=== PATIENT | female | born 1990 | race Caucasian/White ===

== ENCOUNTER 2020-06-22 20:27 | Emergency (ER) | payer SELFPAY ==
[2020-06-22 20:29] VITALS: BP 123/75; PULSE 80; RESP 14; TEMP 36.7; O2SAT 94
--- NOTE | 2020-06-22 21:05 | ED.DENTAL ---
HPI - Dental/Oral General Chief complaint: Dental/Oral <Pablito Perez PA-C - Last Filed: 06/22/20 21:20> Stated complaint: TOOTH PAIN <Pablito Perez PA-C - Last Filed: 06/22/20 21:20> Time Seen by Provider: 06/22/20 20:43 <Pablito Perez PA-C - Last Filed: 06/22/20 21:20> Source: patient <Pablito Perez PA-C - Last Filed: 06/22/20 21:20> Mode of arrival: ambulatory <LUKE Jordan Last Filed: 06/22/20 21:20> Limitations: no limitations <LUKE Jordan Last Filed: 06/22/20 21:20> History of Present Illness HPI Narrative: Patient presents with chief complaint of left upper dental pain in the area of 3 teeth that have been broken for multiple years but just became painful today at approximately 4 PM. Patient states that the pain is worse and if she cannot eat or drink to due to the discomfort. Patient denies fever, chills, nausea, vomiting, diarrhea. Patient denies any allergies to any antibiotics. Patient denies chance of due to being on oral control and not being sexually active for many months. Patient denies any other symptoms or concerns. <Pablito Perez PA-C - Last Filed: 06/22/20 21:20> Related Data Allergies/adverse reactions: Allergies Allergy/AdvReac Type Severity Reaction Status Date / Time No Known Allergies Allergy Verified 06/22/20 20:44 <Pablito Perez PA-C - Last Filed: 06/22/20 21:20> Review of Systems Review of Systems: Narrative: CONSTITUTIONAL: Denies fever, chills, or sweats. EYES: Denies visual changes, redness, or discharge. ENT: Reports dental pain denies rhinorrhea, congestion, sore throat, or otalgia. CARDIOVASCULAR: Denies chest pain, palpitations, or edema. RESPIRATORY: Denies cough or dyspnea. GASTROINTESTINAL: Denies abdominal pain, nausea, vomiting, or diarrhea. GENITOURINARY: Denies dysuria or hematuria. SKIN: Denies rash or itching. MUSCULOSKELETAL: Denies back pain, joint pain, or myalgia. NEUROLOGIC: Denies headache, numbness, dizziness, or weakness. PSYCHIATRIC: Denies anxiety or depression. <Pablito Perez PA-C - Last Filed: 06/22/20 21:20> [facility] Social History Social History: Social History (Updated 10/17/19 @ 13:45 by Logan Ortiz PA-C) Smoking status: Current every day smoker Gender identity (if verbalized by the patient): Female <Pablito Perez PA-C - Last Filed: 06/22/20 21:20> Exam Narrative: Exam Narrative: GENERAL: Well-appearing, well-nourished, and in no acute distress. HEAD: Normocephalic, atraumatic. EYES: PERRLA and EOMI. ENT: Nares clear, no rhinorrhea or epistaxis. Mucous membranes moist. Oropharynx without tonsillar hypertrophy exudate or other lesions. Bilateral TMs pearly de guzman nonbulging. Decay and fracture to left upper 11-13. No abscess or drainage noted. NECK: Supple. No adenopathy or masses. CHEST: Clear to auscultation. No respiratory distress. No wheezes rales or rhonchi HEART: Regular rate and rhythm. EXTREMITIES: Normal range of motion. No edema. SKIN: Warm, dry, no rash. NEURO: No focal deficits. Alert and oriented x3. <Pablito Perez PA-C - Last Filed: 06/22/20 21:20> Course Vital Signs Vital signs: Vital Signs Temperature 36.7 C 06/22/20 20:29 Pulse Rate 80 06/22/20 20:29 Respiratory Rate 14 06/22/20 20:29 Blood Pressure 123/75 06/22/20 20:29 Pulse Oximetry 94 06/22/20 20:29 Temperature 36.7 C 06/22/20 20:29 Pulse Rate 79 06/22/20 21:30 Respiratory Rate 18 06/22/20 21:30 Blood Pressure 123/75 06/22/20 20:29 Pulse Oximetry 100 06/22/20 21:30 <Pablito Perez PA-C - Last Filed: 06/22/20 21:20> Vital Signs Temperature 36.7 C 08/25/20 20:29 Pulse Rate 80 06/22/20 20:29 Respiratory Rate 14 06/22/20 20:29 Blood Pressure 123/75 06/22/20 20:29 Pulse Oximetry 94 06/22/20 20:29 Temperature 36.7 C 06/22/20 20:29 Pulse Rate 79 06/22/20 21:30 Respiratory Rate
[2020-06-22] MEDS: KETOROLAC (*BKC) 60 MG/2 ML VIAL 30 MG IM (21:25)
[2020-06-22 21:30] VITALS: PULSE 79; RESP 18; O2SAT 100
== END 2020-06-22 21:32 | disposition home or self-care (01) ==
PROVIDERS: Emergency Provider Emergency Medicine
DX: K02.9 Dental caries, unspecified (principal); F17.210 Nicotine dependence, cigarettes, uncomplicated
CPT/HCPCS: 96372; 99283; J1885

== ENCOUNTER 2020-12-07 22:15 | Emergency (ER) | payer SELFPAY ==
--- NOTE | ~2020-12-07 | XR_ITS ---
EXAMINATION: XR soft tissue neck DATE: 12/07/2020 22:38 INDICATION: Throat and chest pain after eating chips. Possible foreign body. TECHNIQUE: AP and lateral views of the soft tissues of the neck were obtained. COMPARISON: None. FINDINGS: No radiopaque foreign bodies. Cervical soft tissues are unremarkable with normal epiglottis. The visu alized airway and bilateral upper lung zones are clear. Bones are unremarkable. IMPRESSION: 1. Negative soft tissue neck radiographs. No evident radiopaque foreign bodies. Reviewed, dictated and finalized at location A. ICAL QUALITY ASSURANCE SPECIALIST
--- NOTE | ~2020-12-07 | XR_ITS ---
EXAMINATION: XR chest 2V DATE: 12/07/2020 23:34 INDICATION: Midsternal chest pain. Shortness of breath. TECHNIQUE: PA and lateral views of the chest were obtained. COMPARISON: None FINDINGS: The lungs are clear with no focal airspace opacities, pulmonary edema, pleural effusion or pneumothor ax. The cardiomediastinal silhouette is normal. Visualized bones and soft tissues are unremarkable. IMPRESSION: 1. Normal chest radiograph. Reviewed, dictated and finalized at location A. ET RESEARCH MANAGER IMPRESSION: 1. Normal chest radiograph.
[2020-12-07 22:17] VITALS: BP 133/90; PULSE 94; RESP 22; TEMP 36.4; O2SAT 100
--- NOTE | 2020-12-07 22:31 | ED.GENADULT ---
HPI - General Adult General Chief complaint: Unspecified Stated complaint: feels like something stuck in throat Time Seen by Provider: 12/07/20 22:25 Source: patient Mode of arrival: ambulatory Limitations: no limitations History of Present Illness HPI narrative: Patient is a 30-year-old female complaining of something feels like stuck in my throat after eating chips tonight, but states that when she tried to swallow she had no difficulty, she was able to drink a whole can of Coke I thought I had gas, indigestion . Patient denies any facial, lip, tongue or throat swelling. Patient denies any chest pain or shortness of breath. Related Data Allergies Allergy/AdvReac Type Severity Reaction Status Date / Time No Known Allergies Allergy Verified 12/07/20 22:20 Review of Systems Review of Systems: All systems reviewed & are unremarkable except as noted in HPI and below Constitutional: Constitutional: Denies body ache(s), Denies chills, Denies excessive sweating, Denies fatigue, Denies fever(s), Denies headache(s), Denies lethargy, Denies malaise, Denies weakness and Denies weight loss Eyes: Eyes: Denies blurry vision, Denies change in vision and Denies loss of vision ENT: Denies dizziness, Denies ear discharge, Denies headache(s), Denies lip swelling, Denies epistaxis, Denies nasal congestion, Denies neck pain, Denies throat swelling and Denies tongue swelling Cardiovascular: Cardiovascular: Denies chest pain, Denies chest pain at rest, Denies chest pain with activity, Denies diaphoresis, Denies rapid heart rate, Denies edema, Denies irregular heart rhythm, Denies lightheadedness, Denies palpitations, Denies dyspnea and Denies dyspnea on exertion Respiratory: Respiratory: Denies chest congestion, Denies cough, Denies hemoptysis, Denies dyspnea and Denies dyspnea on exertion Gastrointestinal: Gastrointestinal: Denies abdominal pain, Denies melena, Denies hematochezia, Denies diarrhea, Denies nausea, Denies vomiting and Denies hematemesis Musculoskeletal: Musculoskeletal: Denies abnormal gait, Denies deformity, Denies joint swelling, Denies limited range of motion, Denies neck pain and Denies numbness Neurologic: Denies Abnormal speech present, Denies abnormal gait, Denies confusion, Denies dizziness, Denies headache(s), Denies focal weakness, Denies loss of vision, Denies numbness, Denies Other visual disturbances, Denies Sensory deficit (Neuro) and Denies weakness Psychiatric: Psychiatric: Denies confusion, Denies depression, Denies auditory hallucinations, Denies homicidal ideation and Denies suicidal ideation Endocrine: Endocrine: Denies cold intolerance, Denies excessive sweating, Denies fatigue, Denies heat intolerance and Denies palpitations Hematologic/Lymphatic: Hematologic/Lymphatic: Denies easy bleeding and Denies easy bruising Allergic/Immunologic: Allergic/Immunologic: Denies lip swelling, Denies throat swelling and Denies tongue swelling PMFSH Social History Social History Smoking status: Current every day smoker Gender identity (if verbalized by the patient): Female Exam Const: General: cooperative, healthy appearing, comfortable, no acute distress, well developed, alert and awake; No confusion Orientation/consciousness: oriented to person, oriented to place, oriented to time, patient oriented x3 and No confusion Limitations: no limitations HENMT: Head: normal to inspection, normocephalic and atraumatic Ears: hearing grossly normal bilaterally, TM normal on the right and TM normal on the left General nose exam: Normal external nose present, Normal nares present and No nasal discharge present Face and sinus: normal facial exam Mouth: Yes Normal oral and palatal mucosa present, Yes lip normal, Yes tongue normal, Yes oropharynx normal and Yes other (Clear oropharyngeal area, negative for swelling) Throat: posterior oropharynx normal, tonsils normal and uvula m
--- NOTE | 2020-12-07 23:18 | ECG_ITS ---
Measurements Intervals [place] Rate: 74 P: 71 HI: 186 QRS: 66 QRSD: 102 T: 54 QT: 364 QTc: 405 Interpretive Statements SINUS RHYTHM BASELINE ARTIFACT- I, III, AVR, AVL, AVF NORMAL ECG Electronically Signed On 12-08-2020 7:05:34 OIL WELL CABLE TOOL OPERATOR by Jacob Helms D.O.
[2020-12-07] MEDS: FAMOTIDINE 20 MG TABLET PO (23:21)
[2020-12-07] MEDS: BELLADONNA ALK/PHENOB ELIX 10 ML, MAG HYDROX/ALUMINUM HYD/SIMETH 30 ML, LIDOCAINE HCL 2... PO (23:21)
--- NOTE | 2020-12-07 23:33 | PC.NURSE ---
Patient now states she is having chest pain. EDP Rosemary notified. EKG done and patient placed on audio visual coordinator.
[2020-12-08 00:19] VITALS: BP 140/75; PULSE 79; RESP 14; O2SAT 100
== END 2020-12-08 00:41 | disposition home or self-care (01) ==
PROVIDERS: Emergency Provider Emergency Medicine
DX: K29.00 Acute gastritis without bleeding (principal); F17.200 Nicotine dependence, unspecified, uncomplicated
CPT/HCPCS: 70360; 71046; 93005; 99283; A9270

== ENCOUNTER 2021-04-08 17:06 | Emergency (ER) | payer SELFPAY ==
[2021-04-08 17:08] VITALS: BP 127/62; PULSE 74; RESP 18; TEMP 36.4; O2SAT 98
--- NOTE | 2021-04-08 17:12 | ECG_ITS ---
Measurements Intervals [place] Rate: 64 P: 66 [place]: 210 QRS: 45 QRSD: 93 T: 45 QT: 374 QTc: 388 Interpretive Statements SINUS RHYTHM WITH MARKED SINUS ARRHYTHMIA WITH INTERMITTENT FIRST DEGREE AV BLOCK INCOMPLETE RIGHT BUNDLE BRANCH BLOCK LOW QRS VOLTAGE IN PRECORDIAL LEADS ABNORMAL ECG Electronically Signed On 04-08-2021 20:32:59 CDT by Jacob Helms D.O.
[2021-04-08 17:26] LABS: Basophils Absolute Auto 0.1 K/mm3 (0.0-0.1); Basophils Percent Auto 0.7 % (0.2-1.2); Eosinophils Absolute Auto 0.2 K/mm3 (0-0.3); Eosinophils Percent Auto 2.9 % (0-4.4); Hematocrit 41.3 % (37.0-47.0); Hemoglobin 13.7 g/dL (12.0-15.0); Immature Granulocyte Absolute 0.02 K/mm3 (0.00-0.031); Immature Granulocyte Percent A 0.2 % (0-0.5); Lymphocytes Absolute Auto 2.15 K/mm3 (0.9-3.2); Lymphocytes Percent Auto 26.3 % (18.3-44.2); Mean Corpuscular HGB Conc 33.2 g/dl (32-36); Mean Corpuscular Hemoglobin 30.2 pg (26-34); Mean Corpuscular Volume 91.2 fl (80-100); Mean Platelet Volume 9.2 fl (7.4-10.4); Monocytes Absolute Auto 0.4 K/mm3 (0.1-0.6); Monocytes Percent Auto 5.3 % (2.6-8.5); Neutrophils Absolute Auto 5.3 K/mm3 (1.3-6.7); Neutrophils Percent Auto 64.6 % (45.5-73.1); Platelet Count Result 227 k/mm3 (150-375); Red Blood Count 4.53 M/mm3 (4.2-5.4); Red Cell Distribution Width 12.2 % (11.5-14.5); White Blood Count 8.2 K/mm3 (4.5-10.0)
[2021-04-08 17:38] LABS: Alanine Aminotransferase 9 U/L (4-35); Albumin Level 4.2 g/dL (3.5-5.1); Alkaline Phosphatase 62 U/L (38-126); Anion Gap 7 mmol/L (8-16); Aspartate Amino Transferase 18 U/L (14-36); Bilirubin,Total 0.6 mg/dL (0.2-1.3); Blood Urea Nitrogen 9 mg/dL (7-17); Calcium 9.2 mg/dL (8.4-10.2); Carbon Dioxide 26 mmol/L (22-30); Chloride 106 mmol/L (98-107); Estimated CRCL calculation 104 ml/min; Estimated Glomerular Filt Rate > 60; Glucose 91 mg/dL (65-105); Potassium 4.5 mmol/L (3.4-5.0); Sodium 139 mmol/L (137-145)
[2021-04-08 17:51] LABS: Add Urine Microscopic? NO; Appearance Urine Clear (Clear); Bilirubin Urine Negative (Negative); Blood Urine Negative (Negative); Color Urine Yellow (Yellow); Glucose Urine UA Negative (Negative); Ketones Urine Negative (Negative); Leukocyte Esterase Ur Negative LEU/UL (Negative); Nitrate Urine Negative (Negative); Protein Urine Negative (Negative); Urobilinogen Urine Negative mg/dL (<2.0)
[2021-04-08 17:53] LABS: Specific Grav Ur 1.004 (1.001-1.035)
[2021-04-08 19:28] VITALS: BP 126/84; PULSE 63; RESP 14; TEMP 36.8; O2SAT 100
[2021-04-08] MEDS: SODIUM CHLORIDE 0.9% IV 1,000 ML 999 ML IV CONT (19:43)
--- NOTE | 2021-04-08 20:14 | ED.WEAKNESS ---
HPI - Weakness General Chief complaint: Weakness Stated complaint: at work, weak Time Seen by Provider: 04/08/21 19:31 History of Present Illness HPI Narrative: Patient 30-year-old female presents to emergency department with chief complaint of generalized weakness. 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 The patient states that she does have a propensity to getting dehydrated quite frequently patient denies syncope. Patient states that she would like something to drink denies focal neurological deficit Related Data Allergies Allergy/AdvReac Type Severity Reaction Status Date / Time No Known Allergies Allergy Verified 04/08/21 19:36 Review of Systems Review of Systems: Narrative: A 10 system review of systems was completed on the patient and is negative except for what is stated in the HPI. Nursing and ancillary documentation was reviewed. [facility] [place] Social History Social History Smoking status: Current every day smoker Gender identity (if verbalized by the patient): Female Exam Narrative: Exam Narrative: GENERAL: Well-appearing, well-nourished, and in no acute distress. HEAD: Normocephalic, atraumatic. EYES: PERRLA and EOMI. ENT: Nares clear, no rhinorrhea or epistaxis. Mucous membranes moist. NECK: Supple. CHEST: Clear to auscultation. No respiratory distress. HEART: Regular rate and rhythm. No murmur heard. Normal peripheral pulses. ABDOMEN: Soft, nontender, nondistended, normal active bowel sounds. EXTREMITIES: Normal range of motion. No edema. SKIN: Warm, dry, no rash. NEURO: No focal deficits. Alert and oriented x3. PSYCH: Normal mood and affect. Course Vital Signs Vital signs: Vital Signs Temperature 36.4 C 04/08/21 17:08 Pulse Rate 74 04/08/21 17:08 Respiratory Rate 18 04/08/21 17:08 Blood Pressure 127/62 04/08/21 17:08 Pulse Oximetry 98 04/08/21 17:08 Temperature 36.8 C 04/08/21 19:28 Pulse Rate 63 04/08/21 19:28 Respiratory Rate 14 04/08/21 19:28 Blood Pressure 126/84 04/08/21 19:28 Pulse Oximetry 100 04/08/21 19:28 MDM - Weakness Lab Data Result diagrams: 04/08/21 17:16 04/08/21 17:16 Labs: Lab Results 04/08/21 04/08/21 04/08/21 Range/Units 17:16 17:16 17:35 WBC 8.2 (4.5-10.0) K/mm3 RBC 4.53 (4.2-5.4) M/mm3 Hgb 13.7 (12.0-15.0) g/dL Hct 41.3 (37.0-47.0) % MCV 91.2 (80-100) fl MCH 30.2 (26-34) pg MCHC 33.2 (32-36) g/dl RDW 12.2 (11.5-14.5) % Plt Count 227 (150-375) k/mm3 MPV 9.2 (7.4-10.4) fl Immature Gran % (Auto) 0.2 (0-0.5) % Neut % (Auto) 64.6 (45.5-73.1) % Lymph % (Auto) 26.3 (18.3-44.2) % [place] % (Auto) 5.3 (2.6-8.5) % Eos % (Auto) 2.9 (0-4.4) % Baso % (Auto) 0.7 (0.2-1.2) % Lymph # (Auto) 2.15 (0.9-3.2) K/mm3 [place] # (Auto) 0.4 (0.1-0.6) K/mm3 Eos # (Auto) 0.2 (0-0.3) K/mm3 Baso # (Auto) 0.1 (0.0-0.1) K/mm3 Abs Immat Gran (auto) 0.02 (0.00-0.031) K/mm3 Absolute Neuts (auto) 5.3 (1.3-6.7) K/mm3 Absolute Nucleated RBC 0.0 (0.0-0.012) K/mm3 Nucleated RBC % 0.0 (0.0-0.2) % Sodium 139 (137-145) mmol/L Potassium 4.5 (3.4-5.0) mmol/L Chloride 106 (98-107) mmol/L Carbon Dioxide 26 (22-30) mmol/L Anion Gap 7 L (8-16) mmol/L BUN 9 (7-17) mg/dL Creatinine 0.80 (0.7-1.0) mg/dL Estim Creat Clear Calc 104 ml/min Estimated GFR > 60 (59 - ) Glucose 91 (65-105) mg/dL Calcium 9.2 (8.4-10.2) mg/dL Total Bilirubin 0.6 (0.2-1.3) mg/dL AST 18 (14-36) U/L ALT 9 (4-35) U/L Alkaline Phosphatase 62 (38-126) U/L Total Protein 7.0 (6.3-8.2) g/dL Albumin 4.2 (3.5-5.1) g/dL Urine Color Yellow (Yellow) Ur
[2021-04-08 20:50] VITALS: BP 113/69; PULSE 48; RESP 18; O2SAT 100
[2021-04-08 21:04] VITALS: BP 115/78; PULSE 69; RESP 13; O2SAT 100
== END 2021-04-08 21:16 | disposition home or self-care (01) ==
PROVIDERS: Emergency Medicine; Emergency Provider Emergency Medicine
DX: R53.1 Weakness (principal); R00.1 Bradycardia, unspecified; F17.200 Nicotine dependence, unspecified, uncomplicated; I45.10 Unspecified right bundle-branch block; I44.0 Atrioventricular block, first degree
CPT/HCPCS: 36415; 80053; 81003; 85025; 93005; 96360; 99283; J7030

== ENCOUNTER 2021-07-19 18:18 | Emergency (ER) | payer OTHER, SELFPAY ==
--- NOTE | ~2021-07-19 | XR_ITS ---
EXAMINATION: XR thoracic spine 2V, XR lumbar spine 2-3V DATE: 07/19/2021 21:55 INDICATION: Mid thoracic to lower back pain post injury TECHNIQUE: 1. One AP, lateral and lateral swimmer's views of the thoracic spine were obtained. 2. AP, lateral and coned-down lateral lumbosacral views of the lumbar spine were obtained. COMPARISON: None. FINDINGS: Normal alignment of the thoracic and lumbar spine. Vertebral body heights are normal. A few small Gloria morl's nodes along the seventh of the inferior endplates in the mid to lower thoracic spine. Moderate disc height loss at L5-S1 and mild disc height loss at L3-L4 and multiple additional levels in the m id to lower thoracic spine. Mild osteoarthritis at a few of the lumbar facet joints. Sacrum and bilat eral sacral iliac joints are normal. Visualized portion of the lungs are clear. No pleural effusion o r pneumothorax. Cardiomediastinal silhouette is normal. 2 mm calcification lateral to the right trans verse process of L2 possibly a renal stone. IMPRESSION: 1. Mild thoracolumbar spondylosis. No evident acute osseous abnormality. 2. Possible 2 mm right renal stone. Reviewed, dictated and finalized at location A. IMPRESSION: 1. Mild thoracolumbar spondylosis. No evident acute osseous abnormality. 2. Possible 2 mm right renal stone.
[2021-07-19 18:37] VITALS: BP 133/65; PULSE 101; RESP 16; TEMP 36.9; O2SAT 98
[2021-07-19 20:52] VITALS: BP 155/99; PULSE 78; RESP 15; O2SAT 98
--- NOTE | 2021-07-19 21:35 | ED.FALL ---
HPI - Fall General Chief Complaint: Fall Stated Complaint: Tripped and Fall/back pain Laceration to rt knee Time Seen by Provider: 07/19/21 21:10 Source: patient Mode of arrival: ambulatory Limitations: no limitations History of Present Illness HPI Narrative: Patient is a 31-year-old female complaining of mid and lower back pain, 6 out of 10, dull, worse with movement and palpation after falling at work. Patient states that she had a palate at work and fell. Patient denies any head, neck, chest, pelvis, abdomen or any other extremity pain/injury. Denies any loss of consciousness. Related Data Allergies Allergy/AdvReac Type Severity Reaction Status Date / Time paper tape Allergy Hives Uncoded 07/19/21 21:21 Review of Systems Review of Systems: All systems reviewed & are unremarkable except as noted in HPI and below PMFSH Social History Social History Smoking status: Current every day smoker Gender identity (if verbalized by the patient): Female Comments Past medical history: None Family history: Noncontributory Social history: Positive for smoker, no EtOH or drug use Exam Const: General: cooperative, healthy appearing, comfortable, no acute distress, well developed, alert and awake; No confusion Orientation/consciousness: oriented to person, oriented to place, oriented to time, patient oriented x3 and No confusion Limitations: no limitations HENMT: Head: normal to inspection, normocephalic and atraumatic Ears: hearing grossly normal bilaterally, TM normal on the right and TM normal on the left General nose exam: Normal external nose present, Normal nares present and No nasal discharge present Face and sinus: normal facial exam Mouth: Yes Normal oral and palatal mucosa present, Yes lip normal, Yes tongue normal and Yes oropharynx normal Throat: posterior oropharynx normal, tonsils normal and uvula midline Eyes: General: appearance normal, both eyes and all related structures Pupils: Equal, round and reactive pupils present EOM: EOMs intact bilaterally Neck: Neck: normal visual inspection, full ROM, no lymphadenopathy and no meningeal signs Chest: Chest palpation & inspection: normal inspection of the chest Resp: Effort & Inspection: normal respiratory effort, able to speak in complete sentences, no respiratory distress and not tachypneic Auscultation: clear to auscultation bilaterally, no crackles, no rales, no rhonchi and no wheezes Cardio: Rate: regular rate Rhythm: regular rhythm GI: Inspection: normal to inspection GI Palp: No abdominal tenderness, Yes Soft to palpation, No Tenderness to palpation present (GI), No Guarding due to palpation present (GI), No Rigid due to palpation and No Rebound tenderness present Auscultation: normal bowel sounds : General: Yes no CVA tenderness Back/Spine/Pelvis: Other: Negative for vertebral tenderness. Tenderness on palpation bilateral thoracic paraspinal area. Tenderness on palpation bilateral lumbar paraspinal area right greater than the left. Skin: General skin exam: normal color, no rashes or lesions noted, elasticity normal and turgor normal Neuro: General: oriented to person, oriented to place, oriented to time, patient oriented x3, tone normal, moves all extremities, Normal light touch and pain sensation, no meningeal signs, no focal motor deficits, CN's II-XI intact bilaterally and No confusion Cranial nerves: Yes Equal, round and reactive pupils present Speech: No Abnormal speech present Sensory Exam: No Sensory deficit (Neuro) Extrem: General: normal to inspection, full ROM and capillary refill normal Psych: Appearance: grossly normal and well kempt Mental Status: mental status grossly normal Speech and movement: Normal speech and movement present Affect: normal affect Attitude: cooperative Thought process: Normal thought process present Thought content: Yes Normal thought content present
[2021-07-19 23:00] VITALS: BP 130/74; PULSE 74; RESP 19; O2SAT 97
== END 2021-07-19 23:00 | disposition home or self-care (01) ==
PROVIDERS: Emergency Provider Emergency Medicine; PCP Nurse Practitioner Family
DX: S29.019A Strain of muscle and tendon of unspecified wall of thorax, initial encounter (principal); S39.012A Strain of muscle, fascia and tendon of lower back, initial encounter; F17.210 Nicotine dependence, cigarettes, uncomplicated; W19.XXXA Unspecified fall, initial encounter
CPT/HCPCS: 72070; 72100; 99283

== ENCOUNTER 2021-07-21 14:44 | Emergency (ER) | payer OTHER, SELFPAY ==
--- NOTE | ~2021-07-21 | XR_ITS ---
XR shoulder RT min 2V 07/21/2021 15:39 INDICATION: Right shoulder pain PROCEDURE: 4 views right shoulder COMPARISON: 10/17/2019 FINDINGS: Fracture, dislocation or subluxation is not identified. The soft tissues appear within norm al limits. No foreign bodies are identified. IMPRESSION: 1: NO ACUTE BONE OR JOINT ABNORMALITY IDENTIFIED. Reviewed, dictated and finalized at location A.
--- NOTE | ~2021-07-21 | CT_ITS ---
EXAMINATION: CT cervical spine wo con DATE: 07/21/2021 15:34 INDICATION: Neck pain after fall TECHNIQUE: Computed tomography (CT) of the cervical spine was performed without intravenous contrast. The dose-length product was 187 mGy-cm. Automated exposure control and iterative reconstruction tech [email or web address] were employed. COMPARISON: None FINDINGS: There is straightening of cervical lordosis. Vertebral body heights are maintained. No sign ificant disc narrowing. There is anatomic alignment. No evidence for perched facet. Odontoid process within normal limits. Lung apices are normal. No significant paraspinal soft tissue abnormality. Cran iovertebral junction is normal. Thyroid gland within normal limits. IMPRESSION: 1. No acute abnormality of the cervical spine. Reviewed, dictated and finalized at location A.
[2021-07-21 14:50] VITALS: BP 129/82; PULSE 110; RESP 20; TEMP 37.1; O2SAT 97
--- NOTE | 2021-07-21 16:24 | ED.FALL ---
HPI - Fall General Chief Complaint: Fall Stated Complaint: neck shoulder pain Time Seen by Provider: 07/21/21 15:09 Source: patient Mode of arrival: ambulatory Limitations: no limitations History of Present Illness HPI Narrative: Patient presents with chief complaint of pain to her neck and right shoulder that have presented after falling on Sunday while at work. Patient states that her lower body landed on the palate that she tripped on in her upper body landed on the cement floor. Patient presented to the emergency department at that time and had x-rays of her thoracic and lumbar spine however since she has noticed increased pain to her neck and right shoulder. Patient reports tearing the rotator cuff of her right shoulder in the past. Patient denies weakness in the extremity. She denies radicular symptoms. She reports the pain is right to the center of her neck posteriorly and is intense. Patient denies chance of due to being on oral control pills and a negative test on Sunday. Related Data Home Medications Medication Instructions Recorded Confirmed ergocalciferol (vitamin D2) 07/21/21 Allergies Allergy/AdvReac Type Severity Reaction Status Date / Time paper tape Allergy Hives Uncoded 07/19/21 21:21 Review of Systems Review of Systems: CONSTITUTIONAL: Denies fever, chills, or sweats. EYES: Denies visual changes, redness, or discharge. ENT: Denies rhinorrhea, congestion, sore throat, or otalgia. CARDIOVASCULAR: Denies chest pain, palpitations, or edema. RESPIRATORY: Denies cough or dyspnea. GASTROINTESTINAL: Denies abdominal pain, nausea, vomiting, or diarrhea. GENITOURINARY: Denies dysuria or hematuria. SKIN: Denies rash or itching. MUSCULOSKELETAL: Reports neck and right shoulder denies back pain or myalgia. NEUROLOGIC: Denies headache, numbness, dizziness, or weakness. PSYCHIATRIC: Denies anxiety or depression. PMFSH Social History Social History Smoking status: Current every day smoker Gender identity (if verbalized by the patient): Female Exam Narrative: GENERAL: Well-appearing, well-nourished, and in no acute distress. HEAD: Normocephalic, atraumatic. EYES: PERRLA and EOMI. ENT: Nares clear, no rhinorrhea or epistaxis. Mucous membranes moist. Oropharynx without tonsillar hypertrophy exudate or other lesions. Bilateral TMs pearly de guzman nonbulging NECK: Supple. No adenopathy or masses. Pain with palpation directly on patient cervical spine. Patient thin with little fat padding over the area. No step offs palpated. Pain with palpation of right paracervical muscles. CHEST: Clear to auscultation. No respiratory distress. No wheezes rales or rhonchi HEART: Regular rate and rhythm. No murmur heard. Normal peripheral pulses. EXTREMITIES: ROM intact to right shoulder. Pain with palpation anteriorly. Normal range of motion per exam but decreased per patient report. No edema or erythema. SKIN: Warm, dry, no rash. NEURO: No focal deficits. Alert and oriented x3. PSYCH: Normal mood and affect. Course Vital Signs Vital signs: Vital Signs Temperature 98.7 F 07/21/21 14:50 Pulse Rate 110 H 07/21/21 14:50 Respiratory Rate 20 07/21/21 14:50 Blood Pressure 129/82 07/21/21 14:50 Pulse Oximetry 97 07/21/21 14:50 Temperature 98.7 F 07/21/21 14:50 Pulse Rate 110 H 07/21/21 14:50 Respiratory Rate 20 07/21/21 14:50 Blood Pressure 129/82 07/21/21 14:50 Pulse Oximetry 97 07/21/21 14:50 MDM - Fall MDM Narrative Medical decision making narrative: Patient does not have any fractures. Discussed with patient sprain, strain of muscles. Patient given NSAIDs and muscle relaxants. Patient referred to follow-up with her primary care occupational medicine for further evaluation and management of her symptoms. Differential Diagnosis Differential diagnosis: Likely syncope, dislocation of shoulder malika
== END 2021-07-21 17:15 | disposition home or self-care (01) ==
PROVIDERS: Emergency Provider Emergency Medicine; PCP Nurse Practitioner Family
DX: S03.8XXA Sprain of joints and ligaments of other parts of head, initial encounter (principal); S43.401A Unspecified sprain of right shoulder joint, initial encounter; F17.200 Nicotine dependence, unspecified, uncomplicated; W18.09XA Striking against other object with subsequent fall, initial encounter
CPT/HCPCS: 72125; 73030; 99284

== ENCOUNTER 2024-11-28 08:38 | Outpatient (CLI) | payer SELFPAY | END 2024-11-28 08:39 | disposition home or self-care (01) | LOC: ANHSURGERY 08:42 | PROVIDERS: PCP Nurse Practitioner Family; Visit Provider Obstetrics & Gynecology | DX: Z01.812 Encounter for preprocedural laboratory examination (principal); R10.2 Pelvic and perineal pain | CPT/HCPCS: 36415; 86850; 86900; 86901 ==

== ENCOUNTER 2024-12-05 00:34 | Day surgery (SDC) | payer SELFPAY ==
[2024-11-26 10:26] VITALS: BMI 27.2
--- NOTE | 2024-11-26 10:27 | PC.NURSE ---
Report to the Outpatient Waiting Room, entrance under the green pavilion located off [facility], at time _0630_ on date _[id number]_. Planned Procedure Time: _0830_.? Time changes happen often and if your time is changed the preop area will call you the afternoon before. - You and your visitor will be asked to self-screen and do not enter if you have any COVID symptoms. Please call surgeon if you need to reschedule. - A mask is optional within the hospital at this time. Patients may have clear liquids (water, carbonated beverages, clear teas, apple juice) until 3 hours prior to surgery with a maximum of 20 ounces. - No food from midnight until time of surgery and no smoking. This includes no chewing gum, candy or mints. Take only the following medications with a SIP of water on the morning of surgery: __None DO NOT STOP ANY OF YOUR OTHER PRESCRIPTION MEDICATIONS PRIOR TO SURGERY EXCEPT THE FOLLOWING Medications to discontinue per physician ___None Please no make-up, nail sami, hairspray, perfume, deodorant, or body powder the day of surgery.? No jewelry (including any body piercings) or valuables the day of surgery, leave them at home.? Please take a shower or bath the night before, or the morning of, surgery with an antibacterial soap.? Wear comfortable, loose fitting clothing.? - Jewelry must be removed prior to entering the operating room.? Rings and piercings that are not removed may be cut off. - The hospital will not accept responsibility for valuables.? - Please leave all valuables, including medications, at home the day of surgery. If you are going home after surgery, a licensed bobtail driver must drive you home.? - NO public transportation without another adult if you receive anesthesia. - We recommend that an adult stay with you for 24 hours following discharge. - We also recommend that you do not drive, make important decision, drink alcoholic beverages, or take any drugs that were not prescribed by your health care provider for at least 24 hours after your discharge time. Hold all vitamins and supplements for 3 days per anesthesiologist. Follow any additional instructions given to you from your surgeon. Telephone instructions given to _Ynes_and asked if any additional questions and then verbalized understanding. Patient advised to call surgeon office or pre surgery nurse liaison [phone] if any additional questions
--- NOTE | 2024-12-02 12:23 | PM.IMHP ---
H&P: HPI History of Present Illness Date/Time: 12/02/24 12:23 Chief Complaint: pelvic pain and dyspareunia Narrative: this is a 34-year-old female 0 admitted for laparoscopy. She had an ultrasound done in the office which was unremarkable her complaints are severe dyspareunia and pelvic pain she has been a bladder sex for the last year risks and benefits reviewed including not exclusive of , aspiration pneumonia, bleeding, transfusion, perforation injury to bowel, bladder, ureters, or other internal organs with need for open laparotomy. She received the ACOG handout entitled laparoscopy and all questions answered and asked to proceed Review of Systems Review of Systems: CONSTITUTIONAL: Denies fever, chills, or sweats. EYES: Denies visual changes, redness, or discharge. ENT: Denies rhinorrhea, congestion, sore throat, or otalgia. CARDIOVASCULAR: Denies chest pain, palpitations, or edema. RESPIRATORY: Denies cough or dyspnea. GASTROINTESTINAL: Denies abdominal pain, nausea, vomiting, or diarrhea. GENITOURINARY: Denies dysuria or hematuria. SKIN: Denies rash or itching. MUSCULOSKELETAL: Reports neck and right shoulder denies back pain or myalgia. NEUROLOGIC: Denies headache, numbness, dizziness, or weakness. PSYCHIATRIC: Denies anxiety or depression. [facility] Social History Social History Smoking packs per day: 1 Smoking cigarettes per day: 20.0 Years smoked: 15 Smoking pack-years: 15.00 Smoking status: Former smoker Tobacco type: cigarettes and e-cigarettes/vaping Smoking end date: 07/27/21 Additional smoking assessment comments: Vaping since jun 2021 Substance use type: marijuana Other substance usage details: Daily Living arrangements: with family Gender identity (if verbalized by the patient): Female Spiritual care concerns: No Meds Home Medications and Allergies Home Medications ?Medication ?Instructions ?Recorded ?Confirmed ?Type norethindrone (contraceptive) 0.35 0.35 mg PO DAILY 11/26/24 11/26/24 History mg tablet (Mikayla) Allergies Allergy/AdvReac Type Severity Reaction Status Date / Time paper tape Allergy Hives Uncoded 11/26/24 10:14 Exam Const: General: cooperative, healthy appearing and comfortable Nutritional Appearance: average body habitus Orientation/consciousness: oriented to person, oriented to place and oriented to time HENMT: Head: normal to inspection Resp: Effort & Inspection: normal respiratory effort Cardio: Rate: regular rate Rhythm: regular rhythm Heart sounds: S1 normal heart sound present and S2 normal heart sound present GI: Inspection: normal to inspection : External Female Exam: normal external appearance Speculum Exam - Vagina: normal appearance of the vagina Speculum Exam - Cervix: normal appearance of the cervix Bimanual exam- vagina & uterus: uterine size normal and Uterine tenderness Bimanual Exam- Adnexa, other: tender bilaterally Assessment and Plan Assessment and plan (1) Pelvic pain: Code(s): R10.2 - Pelvic and perineal pain Status: Acute (2) Dyspareunia: Status: Acute Plan proceed with diagnostic laparoscopy
[2024-12-05] VITALS (9 sets, daily range): BP systolic 95–135; BP diastolic 56–91; PULSE 47–74; RESP 12–20; TEMP 36.4–36.7; O2SAT 100; BMI 27.8
--- OUTSIDE RECORDS SUMMARY | 2024-12-05 00:37 | XMS_ITS | Clinical Summary ---
Author Organization [facility] Address [facility] [place] [address] Care Team Providers Care Or Scrub Tech Name Role Phone Shanae Barreto [facility] Primary Care Provider + Allergies Active Allergy Reactions Criticality Noted Date Comments Tape Unknown 05/03/2021 Medications Norethindrone (BELLA OR) Take 1 tablet by mouth daily. Active Active Problems Problem Noted Date Diagnosed Date Anemia 04/20/2021 Anxiety 04/20/2021 Bipolar disorder ([facility]) 04/20/2021 Posttraumatic stress disorder 04/20/2021 Bradycardia Family History Medical History Relation Comments Valve Disease Maternal Grandmother rivrea syndrome Maternal Grandmother vein injury Maternal Grandmother Anxiety Mother Asthma Mother Depression Mother Hypertension Mother Thyroid Disease Mother Breast Cancer Paternal Grandmother Relation Status Comments Maternal Grandmother Mother Paternal Grandmother Social History Tobacco Use Types Packs/Day Years Used Date Smoking Tobacco: Every Day Cigarettes Smokeless Tobacco: Never Alcohol Use Standard Drinks/Week Comments Never 0 (1 standard drink = 0.6 oz pur e alcohol) hx of abuse Comments Unknown Sex and Gender Information Value Date Recorded Sex Assigned at Not on file Legal Sex Female 10:50 AM CDT Gender Identity Not on file Sexual Orientation Not on file Last Filed Vital Signs Vital Sign Reading Time Taken Comments Blood Pressure 138/88 05/03/2021 10:11 AM CDT Pulse 77 05/03/2021 10:11 AM CDT Temperature - - Respiratory Rate - - Oxygen Saturation 100% 05/03/2021 10:11 AM CDT Inhaled Oxygen Concentration - - Weight 82.6 kg (182 lb) 05/03/2021 10:11 AM CDT Height 182.9 cm (6') 05/03/2021 10:11 AM CDT Body Mass Index 24.68 05/03/2021 10:11 AM CDT Plan of Treatment Health Maintenance Due Date Last Done Comments Cervical Cancer Screening Pa p Smear (Age 30 to 64) Every 3 Years 1991 Annual Physical 1994 Pneumococcal Vaccine: Pediatrics (0 to 5 Years) and At-Risk Patients (6 to 64 Years) (1 of 2 - PCV) 1997 Hepatitis C 2009 DTaP, Tdap and Td Vaccines ( 1 - Tdap) 2010 Hepatitis B Vaccines (1 of 3 - 19+ 3-dose series) 2010 Cervical Cancer Screening Pa p with HPV Testing (Age 30 to 64) Every 5 Years 2021 Cervical Cancer Screening wi th HPV 2021 COVID-19 Vaccine (2023-2 5 season) 2024 03/18/2021, 03/18/2021 Influenza Adult (#1) 2024 HPV Vaccines Aged Out No longer eligi ble based on patient's age to complete this topic Meningococcal B Vaccine Aged Out No l onger eligible based on patient's age to complete this topic Meningococcal Vaccine Aged Out No rolando jaya eligible based on patient's age to complete this topic RSV Immunizations Under 20 Months Aged Out No longer eligible b ased on patient's age to complete this topic Insurance [facility] Care Teams Or Scrub Tech Relationship Specialty Start Date End Date Shanae Barreto, [employer] [address] [place] [id number] PCP - General NURSE PRACTITIONER 04/22/21
--- NOTE | 2024-12-05 07:14 | WPDHPUPDATE1 ---
History and Physical Update Update Date/Time: 12/05/24 07:14 History and Physical has been reviewed, including an updated exam of the patient. There are NO changes in the patient's condition. Risks, benefits, and alternatives have been discussed and questions answered. Patient agrees to proceed with procedure.
[2024-12-05] MEDS: LACTATED RINGERS 1,000 ML 30 ML IV CONT (07:20)
[2024-12-05] MEDS: ACETAMINOPHEN 500 MG TABLET 1000 MG PO (07:28)
[2024-12-05] MEDS: KETOROLAC 15 MG/ML VIAL (*BKC) IV PUSH (07:29)
[2024-12-05 07:40] LABS: BEDSIDEPREGUCG Negative (Negative)
--- NOTE | 2024-12-05 07:57 | P.PNAN_ITS ---
Anes - Initial Pre Proc Eval Procedure: Operation Date: 12/05/24 08:30 Proposed Procedures p Diagnostic Laparoscopy - Clint Birch MD Date/Time: 12/05/24 07:57 Surgeon: Clint Birch MD Pre Op Diagnosis: pelvic pain, dyspareunia Patient Data Age: 34 Gender: F Height: 1.83 m Weight: 93.25 kg Last Vital Signs Temp 36.7 C 12/05/24 06:58 Pulse 74 12/05/24 06:58 Resp 16 12/05/24 06:58 BP 122/80 12/05/24 06:58 Pulse Ox 100 12/05/24 06:58 O2 Del Method Room Air 12/05/24 06:58 Allergies Allergy/AdvReac Type Severity Reaction Status Date / Time paper tape Allergy Hives Uncoded 12/05/24 07:10 Home Medications ?Medication ?Instructions ?Recorded ?Confirmed ?Type norethindrone (contraceptive) 0.35 0.35 mg PO DAILY 11/26/24 11/26/24 History mg tablet (Mikayla) hydrocodone 5 mg-acetaminophen 325 1 tablet PO Q4H PRN pain #20 tabs 12/05/24 Rx mg tablet Laboratory Tests 12/05/24 07:30 POC Urine HCG, Qual Negative (Negative) Patient hx anesthesia problems: none Family hx anesthesia problems: none Results Review: All pre-operative results and documents have been reviewed as part of the pre- operative evaluation. [facility] Past Medical History Medical History (Updated 12/05/24 @ 07:57 by Clint Fraga MD) Overweight Surgical History Surgical History (Updated 12/05/24 @ 07:57 by Clint Fraga MD) H/O wisdom tooth extraction Social History Social History Smoking packs per day: 1 Smoking cigarettes per day: 20.0 Years smoked: 15 Smoking pack-years: 15.00 Smoking status: Former smoker Tobacco type: cigarettes and e-cigarettes/vaping Smoking end date: 07/27/21 Additional smoking assessment comments: Vaping since jun 2021 Substance use type: marijuana Other substance usage details: Daily Living arrangements: with family Gender identity (if verbalized by the patient): Female Spiritual care concerns: No Anes - Eval Final PreProcedure Day of Procedure 12/05/24 07:57 Patient weight: overweight Heart: regular rate and rhythm Lungs: clear to auscultation Airway: Mallampati scale class II and special considerations poor dentition Neurological: alert and oriented Last oral intake: >/= 8 hours ASA classification: II Emergent: no Anesthetic plan: proceed Anesthesia type and monitoring: general ETT and standard monitoring Results Review: All pre-operative results and documents have been reviewed as part of the pre- operative evaluation. Informed Consent: The patient's anesthetic plan and its attendant risks and benefits were discussed with the patient/family/POA. Questions were solicited and answers provided to the satisfaction of the patient/family/POA.
--- NOTE | 2024-12-05 08:35 | P.OP_ITS ---
Procedure Note - Detailed Date of Procedure 12/05/24 Pre-op Diagnosis pelvic pain, dyspareunia Post-op Diagnosis Same Procedure Performed Laparoscopic destruction bilateral cysts Surgeon Clint Birch MD Anesthesia General Indications 34-year-old female with pelvic pain dyspareunia Findings normal-appearing uterus and tubes. Bilateral simple ovarian cyst. Normal- appearing gallbladder and liver edge Description of Procedure patient was prepped draped in normal sterile fashion placed in dorsal lithotomy position. Under excellent general trach anesthesia weighted speculum placed in posterior fornix vagina. Anterior lip of the cervix grasped with a single-tooth tenaculum. A Garcia's cannula inserted the surface fix to be attached later for uterine manipulation. Bladder was emptied of clear urine in the weighted speculum was removed. The gloves were changed. A supraumbilical incision made the Veress needle passed in the abdomen. Abdomen filled with CO2 O2 gas [id number]. The 5mm trocar advanced under the optic scope no injury seen. Patient placed in Trendelenburg and a suprapubic incision made. The 5mm trocar advanced under direct visualization. About 5cc this cul-de-sac of fluid that was suction removed bilateral ovarian cysts were seen but no evidence of endometriosis the ovarian cysts were opened in linear fashion and drained of clear fluid and the irrigation undertaken the appendix gallbladder and liver edge all appeared within normal limits. The gas was removed from the abdomen. The trocar site removed. The incisions closed with 4 Monocryl glue. Instruments removed from the vagina the patient went recovery in satisfactory condition. All sponge, needle, instrument counts were correct. There were no immediate complications were noted. Estimated Blood Loss 5 Drains No Packing No Pathology None sent Complications No immediate complications Condition Stable Disposition PACU
== END 2024-12-05 10:41 | disposition home or self-care (01) ==
PROVIDERS: PCP Nurse Practitioner Family; Visit Provider Obstetrics & Gynecology
PROC: (CPT 49320; principal; 2024-12-05 08:30)
DX: N83.292 Other ovarian cyst, left side (principal); N83.291 Other ovarian cyst, right side; F17.290 Nicotine dependence, other tobacco product, uncomplicated; F12.90 Cannabis use, unspecified, uncomplicated; Z79.891 Long term (current) use of opiate analgesic; Z98.890 Other specified postprocedural states
CPT/HCPCS: 58662; A9270; J1596; J1885; J2250; J2405; J2704; J2710; J7120